=== PATIENT | male | born 1975 | race Two or more races ===

== ENCOUNTER 2022-03-05 15:38 | Emergency (ER) | payer OTHER ==
[~2022-03-05] VITALS: Ht 170.2 cm; Wt 79.4 kg
[2022-03-05] MEDS ORDERED: NORFLEX100MG PO (19:49)
[2022-03-05] MEDS ORDERED: DICLOFENAC SODI75 MG PO (19:49)
== END 2022-03-05 20:12 | disposition home or self-care (01) ==
LOC: ER 15:38
DX: M62.838 Other muscle spasm (principal); M54.9 Dorsalgia, unspecified; Z91.013 Allergy to seafood